=== PATIENT | female | born 1995 | race African-American/Black ===

== ENCOUNTER 2020-08-15 12:49 | Emergency (ER) | payer OTHER ==
[~2020-08-15] VITALS: Ht 157.5 cm; Wt 51.3 kg
[~2020-08-15 12:49] MED LIST: ASPIRIN325; DAY TIME COLD-237 ML; FLONASE 0.05%50 MCG NASAL; IBUPROFEN 600600 M1 PO; TYLENOL COLD H1 EACH PO
[2020-08-15 13:51] LABS: HEMATOCRIT 43.4 % (37.0-47.0); MCH 28.3 pg (26.0-34.0); MCHC 32.3 g/dL (28.0-37.0); MCV 87.7 fL (80.0-100.0); RBC 4.94 mil/uL (4.20-5.00); RDW 13.5 % (10.5-14.5); WBC 8.1 thou/uL (4.0-11.0)
[2020-08-15 13:58] LABS: CALCIUM 9.3 mg/dL (8.5-10.1); CREATININE 1.1 mg/dL (0.6-1.0); POTASSIUM 3.7 mmol/L (3.5-5.1)
[2020-08-15 14:04] LABS: ALBUMIN 4.2 g/dL (3.4-5.0); TOTAL BILIRUBIN 1.1 mg/dL (0.2-1.0); TOTAL PROTEIN 7.8 g/dL (6.4-8.2)
[2020-08-15 14:54] LABS: URINE BILIRUBIN NEGATIVE (Negative); URINE BLOOD 1+ (Negative); URINE CLARITY CLEAR; URINE COLOR YELLOW; URINE GLUCOSE-RANDOM* 2+ (Negative); URINE KETONES 2+ (Negative); URINE LEUKOCYTES-REFLEX NEGATIVE (Negative); URINE NITRITE-REFLEX NEGATIVE (Negative); URINE PROTEIN (DIPSTICK) NEGATIVE (Negative); URINE UROBILINOGEN 0.2 E.U./dl (0.2-1.0)
[2020-08-15 15:07] LABS: MUCUS 0-3 Light strn/LPF (None Seen); SQUAMOUS 0-3 Few /LPF (0-3)
[2020-08-15 15:08] LABS: BACTERIA-REFLEX 1-9 Few /HPF (None Seen); CASTS None Seen /LPF (None Seen); CRYSTALS None Seen /LPF (None Seen); URINE RBC 0-2 Rare /HPF (0-2); URINE WBC-REFLEX 0-5 Rare /HPF (0-5)
[2020-08-15 18:16] VITALS: BP 115/72
--- NOTE | 2020-08-16 07:22 | EKG ---
[place] [address] [facility] [employer] [address] ELECTROCARDIOGRAM REPORT Name: ZAINAB BIRD [id number] Admission: 08/15/20 Attend Phys: Discharge: 08/15/20 Date of : [birth year] Report #: [id number] [facility] ED Test Date: 2020-08-15 Test Time: 13:21:45 Pat Name: ZAINAB BIRD Department: Room: Gender: F Supplemental Manager: pj : 1995 Requested By: Christian Mariano Order Number: [id number] MD: Enzo Fierro Measurements Intervals [place] Rate: 69 P: 72 WV: 135 QRS: 67 QRSD: 91 T: 52 QT: 393 QTc: 421 Interpretive Statements Sinus arrhythmia Baseline wander in lead(s) II No previous ECG available for comparison Electronically Signed On 08-16-2020 7:22:15 MEETING COORDINATOR by Enzo Fierro [email or web address] <ELECTRONICALLY SIGNED> By: Enzo Fierro MD, [facility] 08/16/20 0722 1321 1321 Enzo Fierro MD, FACC /EPI
== END 2020-08-15 18:17 | disposition home or self-care (01) ==
LOC: ER 12:49
PROVIDERS: Emergency Medicine
DX: R11.10 Vomiting, unspecified (principal)